=== PATIENT | male | born 1975 | race Caucasian/White ===

== ENCOUNTER 2016-04-04 11:29 | Emergency (ER) | payer MEDICAID ==
[~2016-04-04] VITALS: Wt 63.6 kg
--- NOTE | 2016-04-04 13:22 | RADRPT ---
PROCEDURE: Chest radiograph series. CLINICAL INDICATION: Back pain TECHNIQUE: PA and lateral chest x-ray. COMPARISON: None available FINDINGS: The cardiomediastinal silhouette is unremarkable. The lungs and costophrenic angles are clear. The o sseous structures are unremarkable. IMPRESSION: 1. Unremarkable chest radiograph series. RPTAT: KK .Eugenio Garcia MD, Date Time Electronically viewed and signed by .Eugenio Garcia MD, MD on 04/04/2016 13:22 .B/
--- NOTE | 2016-04-04 13:53 | RADRPT ---
PROCEDURE: CT cervical spine without contrast CLINICAL INDICATION: Neck pain, trauma TECHNIQUE: CT scan of the cervical spine was performed on a multidetector CT scanner.. No IV cont rast was administered. Coronal and sagittal reformatted images were obtained from the axial source images. Images were reviewed on a high-resolution PACS workstation. CTDI = 22.29 mGy DLP: 53 3.39 mGy-cm COMPARISON: Correlation with chest radiograph April 04, [address] of the thoracic spine Januar 2016. FINDINGS: There is an acute mildly displaced T1 spinous process fracture. Alignment is normal. The pedicles are not involved. Otherwise there is no evidence of acute fracture. Vertebral body heights and alignment are preserved. The prevertebral soft tissues are normal. There is minimal degenerative disk disease at C5-C6 with small anterior osteophyte formation. There is no evidence of central canal or foraminal stenosis at any level. The lung apices are clear. The paraspinal soft tissues are grossly unremarkable. IMPRESSION: 1. Acute mildly displaced T1 spinous process fracture. 2. Normal alignment. 3. Mild degenerative disk disease at the C5-C6 level. RPTAT: UU .Jenaro Griffin MD, MD Date Time Electronically viewed and signed by .Jenaro Griffin MD, on 04/04/2016 13:53 .K/
--- NOTE | 2016-04-04 13:58 | RADRPT ---
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 Coronal and sagittal ref ormats. Images were interpreted at an independent PACS workstation. CTDI 13.99 mGy DLP 53 3.19 mGy-cm One or more of the following dose reduction techniques were used: Automated exposure control Adjustment of the mA and / or kV according to patient size Use of iterative reconstruction technique. COMPARISON: Cervical spine CT performed same day FINDINGS: There is an acute mildly displaced T1 spinous process fracture (sagittal 41). No additional fractur es are identified. Vertebral body heights and alignment are preserved. There is no evidence of central canal or foraminal stenosis at any level. Intervertebral disk space s are normal. Limited assessment of the lungs is grossly unremarkable. The paraspinal soft tissues are grossly un remarkable. IMPRESSION: 1. Acute mildly displaced T1 spinous process fracture. 2. Normal alignment. 3. No evidence of central canal or foraminal stenosis at any level. RPTAT: UU .Jenaro Griffin MD, MD Date Time Electronically viewed and signed by .Jenaro Griffin MD, on 04/04/2016 13:58 .K/
[2016-04-04] MEDS ORDERED: IBUP-1542 PO (14:14)
[2016-04-04] MEDS ORDERED: HYDR-906 PO (14:14)
[2016-04-04 15:01] VITALS: BP 132/69; PULSE 77; RESP 18; TEMP 98
--- NOTE | 2016-04-04 16:09 | ERD ---
ER Documentation Chief Complaint Date/Time DATE: 04/04/16 TIME: 15:50 Chief Complaint back pain since yest, heard a crack prior to pain HPI This is a 41-year-old male presents to the ER with upper back pain that started yesterday after he lifted something. Patient states that when he lifted with light however is unable to explain what he lifted. States that since then he has not been able to lift his arm. Patient denies any elbow pain any wrist pain or any hand pain. He denies any numbness or tingling of his extremities. This time patient does not have any pain he is just worried because he is unable to lift up his arms. Patient denies any chest pain or shortness of breath. ROS 12 point review of systems was done, all negative except per HPI. Medications Home Meds Active Scripts Ibuprofen* (Motrin*) 600 Mg Tab, 600 MG PO Q6, #30 TAB Prov:LESLI WELLS C 04/04/16 Hydrocodone/Acetaminophen ([place] 5-325 Tablet) 1 Each Tablet, 1 TAB PO Q6H Y for PAIN, #15 TAB Prov:LESLI WELLS 04/04/16 Allergies Allergies: Coded Allergies: No Known Allergy (Unverified , 04/04/16) PMhx/Soc Medical and Surgical Hx: pt denies Medical Hx, pt denies Surgical Hx Physical Exam Vitals Vital Signs Date Time Temp Pulse Resp B/P Pulse Ox O2 Delivery O2 Flow Rate FiO2 04/04/16 15:01 98.0 77 18 132/69 98 Room Air 04/04/16 11:34 98.0 86 20 139/71 98 Physical Exam GENERAL: The patient is well developed and appropriate for usual state of health , in no apparent distress. HEENT: Atraumatic. NECK: C-spine is soft and supple. There is no cervical lymphadenopathy. No rigidity. No step-off's. CHEST: Clear to auscultation bilaterally. There are no rales, wheezes or rhonchi. HEART: Regular rate and rhythm. No murmurs, clicks, rubs or gallops. BACK: Patient is tender to palpation along to the left of the thoracic spine, along left paraspinal muscles. Patient is minimally able to move both shoulders however he is guarding. Patient has full range of motion of both elbows and both wrists. EXTREMITIES: Equal pulses bilaterally. There is no peripheral clubbing, cyanosis or edema. No focal swelling or erythema. Full range of motion. Grossly neurovascularly intact. NEURO: Alert and oriented. SKIN: There is no apparent rash or petechia. The skin is warm and dry. Procedures/MDM EKbpm no ST elevation no t wave inversion. This is a 41-year-old male presents to the ER stating he is unable to lift his arms. Patient is able to lift his arms however it is very minimal, and patient seems to be gaurding. Differential diagnosis includes but is not limited to; fracture, dislocation, transverse myelitis, MS, referred chest pain, [place], AAA. At this time pain is likely related to fracture. I do not believe that this is a neurological disorder as patient is neurologically intact. He is afebrile and well-appearing. I discussed his case with Dr. Agarwal. She will be sent home with [place] with ibuprofen. I shared my medical decision making with the patient and his nephew. I gave them a referral to community clinics and to an orthopedic doctor. She needs to return to ER sooner if symptoms worsen. he is to follow-up with their primary care doctor within 1-2 days. Departure Diagnosis: Primary Impression: Thoracic spine fracture Condition: Stable Patient Instructions: Neck or Spine Fractures (Broken Neck or Spine) Referrals: [facility] YOU HAVE RECEIVED A MEDICAL SCREENING EXAM AND THE RESULTS INDICATE THAT YOU DO NOT HAVE A CONDITION THAT REQUIRES URGENT TREATMENT IN THE EMERGENCY DEPARTMENT. FURTHER EVALUATION AND TREATMENT OF YOUR CONDITION CAN WAIT UNTIL YOU ARE SEEN IN YOUR DOCTORS OFFICE WITHIN THE NEXT 1-2 DAYS. IT IS YOUR RESPONSIBILITY TO MAKE AN APPOINTMENT FOR FOLOW-UP CARE. IF YOU HAVE A PRIMARY DOCTOR --you should call your primary doctor and schedule an appointment IF YOU DO NOT HAVE A PRIMARY DOCTOR YOU CAN CALL OUR PHYSICIAN REFERRAL HOTLINE AT IF YOU CAN NOT AFFORD TO SEE A PHYSICIAN YOU CAN CHOSE FROM THE FOLLOWING [facility] [address] [facility] [address] [facility] [address] [facility] [address] [facility]. [facility] [address] [facility]. [facility] [address] [facility] Hours: Mon-Fri 9:00 AM - 5:00 PM Additional Instructions: Call your primary care doctor TOMORROW for an appointment during the next 1-2 days.See the doctor sooner or return here if your condition worsens before your appointment time. LESLI WELLS Apr 04, 2016 16:00
== END 2016-04-04 15:02 | disposition home or self-care (01) ==
LOC: FTE 11:29
DX: S22.019A Unspecified fracture of first thoracic vertebra, initial encounter for closed fracture (principal); X50.0XXA Overexertion from strenuous movement or load, initial encounter; Y92.9 Unspecified place or not applicable
CPT/HCPCS: 71020; 72125; 72128; 93005; Z7502